=== PATIENT | male | born 1955 | race Caucasian/White ===

== ENCOUNTER 2021-05-14 11:46 | Observation (INO) ==
[2021-05-14] MEDS ORDERED: 0.9 % Sodium Chloride 1,000 ML IVC ONE (11:53)
[2021-05-14] MEDS ORDERED: Isovue-370 500 ML BOTTLE IVP ONE (11:53)
[2021-05-14 12:28] LABS: Red Blood Count 4.73 M/mcL (4.19-5.50); Red Cell Distribution Width 12.9 % (11.5-14.5)
[2021-05-14 12:30] LABS: Basophils % 0.2 %; Eosinophils % 0.1 %; Hematocrit 46.2 % (37.5-50.1); Hemoglobin 15.3 g/dL (12.9-16.9); Immature Granulocytes % 0.4 % (0-4); Immature Platelets 6.3 % (1.1-6.1); Lymphocytes # 0.6 K/mcL (0.6-4.6); Lymphocytes % 5.9 %; Mean Corpuscular HGB Conc 33.1 g/dL (31.6-35.5); Mean Corpuscular Hemoglobin 32.3 pg (28.0-33.3); Mean Corpuscular Volume 97.7 fL (83.0-100.0); Mean Platelet Volume 10.7 fL (9.4-12.4); Monocytes # 0.7 K/mcL (0.0-1.3); Monocytes % 7.9 %; Platelet Count 107 K/mcL (140-400); Segmented Neutrophils % 85.5 %; White Blood Count 9.4 K/mcL (4.3-11.1)
[2021-05-14 12:47] LABS: BUN/Creatinine Ratio 19 (6-26); Blood Urea Nitrogen 22 mg/dL (8-23); Calcium 9.5 mg/dL (8.6-10.3); Carbon Dioxide 29 mEq/L (23-29); Chloride 101 mEq/L (98-107); Glucose 114 mg/dL (70-105); Osmolality,Calculated 290 (280-300); Potassium 3.9 mEq/L (3.5-5.1); Sodium 138 mEq/L (136-145); eGFR For African Americans > 60 (> 60); eGFR For Non-African Americans > 60 (> 60)
[2021-05-14] MEDS ORDERED: cefTRIAXone 1,000 MG in Water for inj. (sterile) 10 ML IVP ONE (13:42)
[2021-05-14 13:53] LABS: Bilirubin,Urine Negative (Negative); Blood,Urine Small (Negative); Clarity,Urine Clear (Clear); Color,Urine Yellow (Yellow); Glucose,Urine (UA) Normal (Normal); Ketones,Urine Negative (Negative); Leukocyte Esterase,Urine Small (Negative); Nitrite,Urine Negative (Negative); PH,Urine 5.5 pH Units (5.0-8.0); Protein,Urine 100 mg/dL (Neg-Trace); Specific Gravity,Urine >= 1.030 (1.010-1.025); Urobilinogen,Urine Normal (Normal)
[2021-05-14 14:00] LABS: RBC,Urine 0-3 per hpf (0-3); WBC,Urine 15-30 per hpf (0-3)
[2021-05-14 14:01] LABS: Bacteria,Urine Few per hpf (None-Few); Squamous Epithelial Cell,Urine Few per hpf (None-Few)
[2021-05-14 14:17] LABS: Platelet Estimate Slight Decrease (Normal)
[2021-05-14] MEDS ORDERED: Ondansetron 4 MG/2 ML VIAL IVP PRN (15:19)
[2021-05-14] MEDS ORDERED: Naloxone 0.4 MG/ML INJ IVP PRN (15:19)
[2021-05-14] MEDS ORDERED: Melatonin 3 MG TABLET PO PRN (15:19)
[2021-05-14] MEDS: *HR* Heparin 5,000 UNIT/ML VIAL SQ SCH (16:53)
[2021-05-14] MEDS: Acetaminophen 325 MG TABLET PO PRN (19:16)
[2021-05-15 01:59] LABS: Hematocrit 43.7 % (37.5-50.1); Hemoglobin 14.6 g/dL (12.9-16.9); Immature Platelets 5.9 % (1.1-6.1); Mean Corpuscular HGB Conc 33.4 g/dL (31.6-35.5); Mean Corpuscular Hemoglobin 32.8 pg (28.0-33.3); Mean Corpuscular Volume 98.2 fL (83.0-100.0); Mean Platelet Volume 11.3 fL (9.4-12.4); Red Blood Count 4.45 M/mcL (4.19-5.50); Red Cell Distribution Width 12.9 % (11.5-14.5); White Blood Count 8.3 K/mcL (4.3-11.1)
[2021-05-15 02:19] LABS: BUN/Creatinine Ratio 23 (6-26); Blood Urea Nitrogen 22 mg/dL (8-23); Calcium 8.7 mg/dL (8.6-10.3); Carbon Dioxide 25 mEq/L (23-29); Chloride 103 mEq/L (98-107); Glucose 133 mg/dL (70-105); Osmolality,Calculated 289 (280-300); Potassium 3.9 mEq/L (3.5-5.1); Sodium 137 mEq/L (136-145); eGFR For African Americans > 60 (> 60); eGFR For Non-African Americans > 60 (> 60)
[2021-05-15] MEDS: *HR* Heparin 5,000 UNIT/ML VIAL SQ SCH (05:43)
[2021-05-15] MEDS: Acetaminophen 325 MG TABLET PO PRN (06:16)
[2021-05-15 07:22] VITALS: BP 122/73
[2021-05-15] MEDS ORDERED: lisinopriL 20 MG TABLET PO SCH (09:00)
[2021-05-15] MEDS ORDERED: cefTRIAXone 2,000 MG in Water for inj. (sterile) 20 ML IVP SCH (09:00)
== END 2021-05-15 10:04 | disposition home or self-care (01) ==
LOC: 3BNU 11:46 → EMEROOARM 11:46 → SUATTDRO 15:35 → 3BNU 16:00
PROVIDERS: ADMIT Internal Medicine; ATTEND Family Medicine